=== PATIENT | female | born 1990 | race Caucasian/White ===

== ENCOUNTER 2021-07-18 05:02 | Inpatient (IN) | payer OTHER, SELFPAY ==
[2021-07-18] VITALS (52 sets, daily range): BP systolic 107–135; BP diastolic 60–93; PULSE 58–99; RESP 18; TEMP 36.2–36.6; O2SAT 97–100; BMI 33.0
[2021-07-18 05:41] LABS: Basophils Percent Auto 0.4 % (0.2-1.2); Eosinophils Absolute Auto 0.1 K/mm3 (0-0.3); Eosinophils Percent Auto 1.5 % (0-4.4); Hemoglobin 11.5 g/dL (12.0-15.0); Immature Granulocyte Absolute 0.03 K/mm3 (0.00-0.031); Immature Granulocyte Percent A 0.4 % (0-0.5); Lymphocytes Absolute Auto 1.77 K/mm3 (0.9-3.2); Lymphocytes Percent Auto 23.9 % (18.3-44.2); Mean Corpuscular HGB Conc 31.9 g/dl (32-36); Mean Corpuscular Hemoglobin 29.9 pg (26-34); Mean Corpuscular Volume 93.5 fl (80-100); Mean Platelet Volume 10.9 fl (7.4-10.4); Monocytes Absolute Auto 0.5 K/mm3 (0.1-0.6); Monocytes Percent Auto 6.6 % (2.6-8.5); Neutrophils Percent Auto 67.2 % (45.5-73.1); Platelet Count Result 158 k/mm3 (150-375); Red Blood Count 3.85 M/mm3 (4.2-5.4); Red Cell Distribution Width 13.6 % (11.5-14.5); White Blood Count 7.4 K/mm3 (4.5-10.0)
[2021-07-18] MEDS: OXYTOCIN 30 UNITS/NS 500 ML 30 UNITS/500 ML BAG IV CONT (05:53)
[2021-07-18] MEDS: LACTATED RINGERS 1,000 ML 125 ML IV CONT ×2 (05:53→08:57)
--- NOTE | 2021-07-18 07:23 | PM.IMHP ---
H&P: HPI History of Present Illness Date/Time: 07/18/21 07:23 Chief Complaint: This is 30-year-old 3 para 2 at 39 weeks gestation confirmed by early ultrasound for induction of labor. Her cervix is favorable under has been uncomplicated. She is negative for group B strep PMFSH Family History Family History Father Sarcoidosis Lung transplant recipient Grandparent Diabetes mellitus Heart disease Mother Hypertension Sibling Down's syndrome Social History Social History Smoking status: Never smoker Second hand tobacco smoke exposure: No Substance use: never Spiritual care concerns: No Meds Home Medications and Allergies Home Medications Medication Instructions Recorded Confirmed Type vit no.95-ferrous 1 tablet PO DAILY 02/07/19 07/04/21 History fumarate 28 mg-folic acid 800 mcg tablet () Allergies Allergy/AdvReac Type Severity Reaction Status Date / Time No Known Allergies Allergy Verified 02/07/19 13:35 Vital Signs Vital Signs - 24 hr 07/18/21 05:23 07/18/21 05:30 07/18/21 06:00 Temperature 97.1 F L Pulse Rate 74 76 Blood Pressure 121/81 121/86 Oxygen Delivery 07/18/21 06:30 07/18/21 07:00 07/18/21 05:39 Temperature 97.4 F L Pulse Rate 93 74 Blood Pressure 122/93 H 120/83 Oxygen Delivery Room Air Exam : Manual OB Exam: dilated ( cervix 3/75/1. AROM clear. FHTs reassuring) 3 cm H&P: Results Labs Labs: Short CBC 07/18/21 Range/Units 05:35 WBC 7.4 (4.5-10.0) K/mm3 Hgb 11.5 L (12.0-15.0) g/dL Hct 36.0 L (37.0-47.0) % Plt Count 158 (150-375) k/mm3 Assessment and Plan Assessment and plan (1) Term : Code(s): Z34.90 - Encounter for supervision of normal , unspecified, unspecified trimester Status: Acute Plan term Additional Plan medical induction of labor. Spontaneous vaginal delivery is expected. She has an epidural candidate
--- NOTE | 2021-07-18 09:15 | WPDANESEPP ---
Anes - Eval Pre Procedure Procedure: Labor Epidural Date/Time: 07/18/21 09:15 Surgeon: Farhan Preop Diagnosis: Labor Pain Pre Op Diagnosis: IOL Patient Data Age: 30 Gender: F Height: 1.65 m Weight: 90 kg Last Vital Signs Temp 36.2 C L 07/18/21 09:00 Pulse 71 07/18/21 09:15 BP 114/71 07/18/21 09:15 Pulse Ox 99 07/18/21 09:11 O2 Del Method Room Air 07/18/21 05:39 Allergies Allergy/AdvReac Type Severity Reaction Status Date / Time No Known Allergies Allergy Verified 02/07/19 13:35 Home Medications Medication Instructions Recorded Confirmed Type vit no.95-ferrous 1 tablet PO DAILY 02/07/19 07/04/21 History fumarate 28 mg-folic acid 800 mcg tablet () Laboratory Tests 07/18/21 07/18/21 07/18/21 05:35 05:35 05:35 WBC 7.4 K/mm3 K/mm3 (4.5-10.0) RBC 3.85 M/mm3 L M/mm3 (4.2-5.4) Hgb 11.5 g/dL L g/dL (12.0-15.0) Hct 36.0 % L % (37.0-47.0) MCV 93.5 fl fl (80-100) MCH 29.9 pg pg (26-34) MCHC 31.9 g/dl L g/dl (32-36) RDW 13.6 % % (11.5-14.5) Plt Count 158 k/mm3 k/mm3 (150-375) MPV 10.9 fl H fl (7.4-10.4) Immature Gran % (Auto) 0.4 % % (0-0.5) Neut % (Auto) 67.2 % % (45.5-73.1) Lymph % (Auto) 23.9 % % (18.3-44.2) Bertie % (Auto) 6.6 % % (2.6-8.5) Eos % (Auto) 1.5 % % (0-4.4) Baso % (Auto) 0.4 % % (0.2-1.2) Lymph # (Auto) 1.77 K/mm3 K/mm3 (0.9-3.2) Bertie # (Auto) 0.5 K/mm3 K/mm3 (0.1-0.6) Eos # (Auto) 0.1 K/mm3 K/mm3 (0-0.3) Baso # (Auto) 0.0 K/mm3 K/mm3 (0.0-0.1) Abs Immat Gran (auto) 0.03 K/mm3 K/mm3 (0.00-0.031) Absolute Neuts (auto) 5.0 K/mm3 K/mm3 (1.3-6.7) Absolute Nucleated RBC 0.0 K/mm3 K/mm3 (0.0-0.012) Nucleated RBC % 0.0 % % (0.0-0.2) RPR Pending Blood Type O Positive Antibody Screen Negative Patient hx anesthesia problems: none Family hx anesthesia problems: none Results Review: All pre-operative results and documents have been reviewed as part of the pre-operative evaluation. [facility] Family History Family History Father Sarcoidosis Lung transplant recipient Grandparent Diabetes mellitus Heart disease Mother Hypertension Sibling Down's syndrome Social History Social History Smoking status: Never smoker Second hand tobacco smoke exposure: No Substance use: never Spiritual care concerns: No Exam Day of Procedure 07/18/21 09:15 Patient weight: normal Lungs: normal air movement Airway: Mallampati scale class II Neurological: alert and oriented
--- NOTE | 2021-07-18 10:27 | PM.OBPRVD ---
OB - Delivery Note Procedure Procedure: mil Complications: none Baby Date of : 07/18/21 Weeks of gestation at delivery: 39 Infant gender: Male presentation: vertex position: Right Occiput Anterior Placenta delivery description: Spontaneous Cord Vessel Description: 3 Vessels score one minute: 9 score five minutes: 9
[2021-07-18] MEDS: OXYTOCIN 30 UNITS/NS 500 ML 30 UNITS/500 ML BAG 125 UNITS IV CONT (10:49)
[2021-07-18 11:03] LABS: Rapid Plasma Reagin Non-Reactive (NonReactive)
--- NOTE | 2021-07-18 13:30 | OBPPTRN ---
1307-Patient transferred to post room #285 via wheelchair. Support person present. Oriented to unit, room, information board, rooming in, admission packet and security measures. Patient verbalizes understanding.
[2021-07-18] MEDS: IBUPROFEN 600 MG TABLET PO ×2 (13:56→19:37)
[2021-07-18] MEDS: DIBUCAINE 1% OINTMENT 30 GM TUBE 1 APPLIC TOPICAL (19:42)
[2021-07-18] MEDS: ACETAMINOPHEN 325 MG TABLET 650 MG PO (23:08)
[2021-07-19] MEDS: IBUPROFEN 600 MG TABLET PO ×2 (04:23→13:48)
[2021-07-19 04:40] VITALS: BP 107/76; PULSE 63; RESP 18; TEMP 36.3
[2021-07-19 05:02] LABS: Hematocrit 33.9 % (37.0-47.0); Hemoglobin 11.1 g/dL (12.0-15.0)
[2021-07-19 07:50] VITALS: BP 96/66; PULSE 64; RESP 18; TEMP 36.3; O2SAT 98
[2021-07-19] MEDS: ACETAMINOPHEN 325 MG TABLET 650 MG PO (08:15)
[2021-07-19] MEDS: MULTIVIT/MIN/PREN/FOL AC/IRON TABLET 1 TAB PO (08:15)
--- NOTE | 2021-07-19 08:53 | PM.OBPNVD ---
OB - PN: Subj Subjective Date/time seen: 07/19/21 08:53 OB - PN: Obj Data Labs CBC & Chem 7: 07/19/21 04:23 Labs: Laboratory Results - last 24 hr 07/18/21 07/19/21 05:35 04:23 Hgb 11.1 L Hct 33.9 L RPR Non-reactive Imaging My impression: term OB - PN A/P Plan day: 2 Plan: routine care, discharge home and follow up 6 weeks Time Spent With Patient Time: Total time spent is greater than 50% in coordination of care (as documented) at patient's floor/unit and/or counseling patient: Time with patient: less than 15 minutes
--- NOTE | 2021-07-19 09:01 | WPDANLDPN2 ---
Anes-Prog Note L&D Date/Time: 07/19/21 09:01 Comfortable throughout: labor and delivery Neuraxial method: epidural Epidural/Spinal procedure site: clean & non-tender Neuro status: Neuro function grossly intact. Cardiovascular status: normal Respiratory status: normal Airway patency: baseline Mental status: baseline Post-Op hydration status: normal Vital Signs: Last Vital Signs Temp 36.3 C L 07/19/21 07:50 Pulse 64 07/19/21 07:50 Resp 18 07/19/21 07:50 BP 96/66 L 07/19/21 07:50 Pulse Ox 98 07/19/21 07:50 O2 Del Method Room Air 07/19/21 04:40 Pain score (VAS): 10 I/O: Intake & Output 07/18/21 07/19/21 07/19/21 23:59 07:59 15:59 Intake Total 480 Balance 480 Post-procedural complaints: none Patient feedback: Patient satisfied with anesthetic care.
--- NOTE | 2021-07-19 13:27 | PC.NURSE ---
Patient viewed the discharge video Mother & Baby Care, The First Two Weeks . Patient was given the opportunity and encouraged to ask questions. Patient verbalized understanding of information shared and has been given the mother/baby guide for home reference.
--- NOTE | 2021-07-19 14:42 | PC.NURSE ---
[id number] Mother ()verbalizes she is able to independently latch with appropriate positioning/alignment. She denies any nipple discomfort and is responsively . Infant is currently meeting outcomes for weight, output, jaundice and feeding frequencies of 8-12 times in 24 hours. Mother declines any additional assistance/education at this time. Mother is encouraged to call for assistance if her infant doesn?t latch or there is discomfort with latching. Mother voiced understanding of information shared, calling for an assessment of a latch, and mom and baby guide reviewed for additional resource information . Reported to the primary RN.
[2021-07-22 09:41] VITALS: BP 114/73; PULSE 76; RESP 20; TEMP 36.7; O2SAT 100
--- NOTE | 2021-07-23 13:17 | PM.DS ---
DS: Admitting Diagnosis Discharge Date 07/19/21 Admitting Diagnosis Term DS: Summary Hospital Course Reason for hospitalization: Patient underwent spontaneous vaginal delivery which was unremarkable. Her hospital course was unremarkable. She remained afebrile. She was up, voiding without difficulty, ambulating generally without complaints. Hospital Course: See above Time Spent with Patient Time attestation: Total time spent providing and/or coordinating discharge services: Discharge Plan Discharge Attending physician on discharge: Danilo Gay Consulting providers: Mckenzie Knight Discharging Clinician: Danilo Gay Patient Disposition: Home, Self-Care Activity: may shower and pelvic rest Diet: heart healthy Wound Care Instructions: follow printed instructions Discharge Instructions: Education: Mom and Baby Guide Given to: Mother Follow-Up: Call your delivering provider's office for an appointment to be seen in: 6 Weeks [facility] the follow-up appointment. Appointment Date/Time: July 22, 2021 at 9:00 am What to expect at your follow-up visit: Physical Assessment Call [phone] if you are unable to keep your appointment time. BREAST CARE: * Wear a snug supportive bra. * For engorgement discomfort: Breast Feeding: * Apply warm moist washcloths * Express milk as needed to relieve engorgement * Wear loose clothing * For sore nipples: * Identify correct latch-on * Apply warm moist washcloths before and after nursing * Air dry nipples after nursing * May apply Lansinoh cream to nipples EPISIOTOMY/PERINEAL CARE: * Until bleeding stops, use your claudia bottle after urinating * Change your pad frequently throughout the day * No tub baths until seen by your physician - You may shower ACTIVITY: * Rest as much as possible. * Do not exercise or lift anything heavier than your baby (such as laundry or other children.) * Avoid stairs or driving as much as possible. * Do not put anything into the vagina. No douching, tampons, or sexual activity until seen by physician. NOTIFY PHYSICIAN IF YOU HAVE ANY QUESTIONS OR IF ANY OF THE FOLLOWING SYMPTOMS OCCUR: * If your perineum becomes red, swollen, or more painful than what you have experienced in the hospital. * If your vaginal bleeding becomes foul smelling. * If your vaginal bleeding becomes more heavy than a period or if your bleeding changes from pink to bright red. However, you may pass an occasional walnut-sized clot once or twice for the first week . * If you experience a sharp, shooting pain in you calves. * If you discover a hard, reddened area on your breast or if you experience flu-like symptoms. DIET: * Eat regular, well-balanced meals. * Drink plenty of fluids daily. If , drink to thirst. Stand Alone Forms: General Discharge Information Follow-up/Referrals: Danilo Gay MD [Physician] - Discharge Medications: Continued PNV cmb#95-ferrous fumarate-FA [] 28 mg iron- 800 mcg Tablet 1 tablet PO DAILY Date of admission: 07/18/21 05:02 Primary Care Provider: PHYSICIAN,TRANSPORTATION PLANNER Admitting Provider: Danilo Gay Attending physician on admission: Danilo Gay Condition: Stable
== END 2021-07-19 14:35 | disposition home or self-care (01) | DRG 807 ==
LOC: ANHLDR 05:06 → ANHOB2 13:20
PROVIDERS: Admitting Provider Obstetrics & Gynecology; Visit Provider Obstetrics & Gynecology
DX: O62.3 Precipitate labor (principal); Z37.0 Single live birth; Z3A.39 39 weeks gestation of pregnancy
CPT/HCPCS: 36415; 85014; 85018; 85025; 86592; 86850; 86900; 86901; A9270; J2590; J2795; J7120

== ENCOUNTER 2024-12-21 10:36 | Outpatient (CLI) | payer OTHER, SELFPAY ==
[2024-12-21 11:06] VITALS: BP 126/79; PULSE 80
[2024-12-21 11:08] VITALS: BP 126/79; PULSE 80; BMI 34.2
[2024-12-21 11:13] LABS: Hematocrit 35.4 % (37.0-47.0); Hemoglobin 11.6 g/dL (12.0-15.0); Immature Granulocyte Percent A 0.4 % (0-0.5); Lymphocytes Absolute Auto 1.43 K/mm3 (0.9-3.2); Mean Corpuscular HGB Conc 32.8 g/dl (32-36); Mean Corpuscular Hemoglobin 29.9 pg (26-34); Mean Corpuscular Volume 91.2 fl (80-100); Nucleated Red Blood Cells Absolute Auto 0.000 K/mm3 (0.0-0.012); Nucleated Red Blood Cells Perc 0.0 % (0.0-0.2); Platelet Count Result 173 k/mm3 (150-375); Red Blood Count 3.88 M/mm3 (4.2-5.4); White Blood Count 6.7 K/mm3 (4.5-10.0)
[2024-12-21 11:16] VITALS: BP 116/80; PULSE 71
[2024-12-21 11:31] VITALS: BP 114/79; PULSE 65
[2024-12-21 11:33] LABS: Alanine Aminotransferase 16 U/L (6-35); Albumin Level 3.8 g/dL (3.5-5.1); Alkaline Phosphatase 87 U/L (38-126); Anion Gap 6 mmol/L (4-12); Aspartate Amino Transferase 23 U/L (14-36); Bilirubin,Total 0.6 mg/dL (0.2-1.3); Blood Urea Nitrogen 11 mg/dL (7-17); Calcium 9.0 mg/dL (8.4-10.2); Carbon Dioxide 20 mmol/L (22-30); Chloride 105 mmol/L (98-107); Estimated CRCL calculation 125 ml/min; Estimated Glomerular Filt Rate > 60; Glucose 101 mg/dL (65-110); Potassium 3.8 mmol/L (3.4-5.0); Sodium 131 mmol/L (137-145); Total Protein 7.1 g/dL (6.3-8.2); Uric Acid 5.2 mg/dL (2.5-7.5)
[2024-12-21 11:41] VITALS: BP 114/79; PULSE 65
--- NOTE | 2024-12-21 11:50 | PC.NURSE ---
Dr. Janessa Lopez informed of BP's, reactive NST, CBC and CMP results. Urine was just sent. OK to discharge pt to home.
--- NOTE | 2024-12-21 11:54 | PM.OBTRLD ---
OB - Triage/Final Diagnosis Visit Information Date of evaluation: 12/21/24 Reason for evaluation: decreased movement Comments/Additional reasons for admission: I have assessed the risk for this patient, Nadiya Morales, and determined that she would benefit from observation care. Evaluation Laboratory results: Laboratory Tests 12/21/24 11:04 WBC 6.7 RBC 3.88 L Hgb 11.6 L Hct 35.4 L MCV 91.2 MCH 29.9 MCHC 32.8 RDW 13.8 Plt Count 173 MPV 10.7 H Immature Gran % (Auto) 0.4 Neut % (Auto) 70.1 Lymph % (Auto) 21.3 Davison % (Auto) 6.0 Eos % (Auto) 1.8 Baso % (Auto) 0.4 Lymph # (Auto) 1.43 Davison # (Auto) 0.4 Eos # (Auto) 0.1 Baso # (Auto) 0.0 Abs Immat Gran (auto) 0.03 Absolute Neuts (auto) 4.7 Absolute Nucleated RBC 0.000 Nucleated RBC % 0.0 Sodium 131 L Potassium 3.8 Chloride 105 Carbon Dioxide 20 L Anion Gap 6 BUN 11 Creatinine 0.63 L Estim Creat Clear Calc 125 Estimated GFR > 60 Glucose 101 Uric Acid 5.2 Calcium 9.0 Total Bilirubin 0.6 AST 23 ALT 16 Alkaline Phosphatase 87 Total Protein 7.1 Albumin 3.8 Vital signs: Vital Signs - 24 hr 12/21/24 11:06 12/21/24 11:08 12/21/24 11:16 Pulse Rate 80 80 71 Blood Pressure 126/79 116/80 Blood Pressure [Right Arm] 126/79 12/21/24 11:31 Pulse Rate 65 Blood Pressure 114/79 Blood Pressure [Right Arm]
[2024-12-21 11:58] LABS: Add Urine Microscopic? NO; Appearance Urine Clear (Clear); Glucose Urine UA Negative (Negative); Leukocyte Esterase Ur Negative LEU/UL (Negative); Nitrate Urine Negative (Negative); Specific Grav Ur 1.014 (1.001-1.035)
--- OUTSIDE RECORDS SUMMARY | 2024-12-21 12:10 | XMS_ITS | Clinical Summary ---
Author Organization [facility] Address [address] [place] [address] Care Team Providers Care Janitor Supervisor Name Role Phone Unavailable Primary Care Provider Unavailabl e Source Comments [facility],non-owned Affiliates and Associated Physician Practices is amultiple site organization consisting of ambulatory clinics and hospital sitesin [place], [place], [place] and [place]. This disclosure is being madepursuant to the Care Everywhere program and may not contain all information available regarding this patient. Last updated 17.[facility] [employer] Social History Tobacco Use Types Packs/Day Years Used Date Smoking Tobacco: Never Assessed Comments Unknown Sex and Gender Information Value Date Recorded Sex Assigned at Not on file Legal Sex Female 5:59 PM CHECKING DEPARTMENT SUPERVISOR Gender Identity Not on file Sexual Orientation Not on file Last Filed Vital Signs Vital Sign Reading Time Taken Comments Blood Pressure 104/82 03/29/2014 1:36 PM CHECKING DEPARTMENT SUPERVISOR Pulse 62 03/29/2014 1:36 PM CHECKING DEPARTMENT SUPERVISOR Temperature 36.5 C (97.7 F) 03/29/2014 1:36 PM CHECKING DEPARTMENT SUPERVISOR Respiratory Rate 16 03/29/2014 1:36 PM CHECKING DEPARTMENT SUPERVISOR Oxygen Saturation - - Inhaled Oxygen Concentration - - Weight 74.4 kg (164 lb) 03/29/2014 1:36 PM CHECKING DEPARTMENT SUPERVISOR Height 165.1 cm (5' 5) 03/29/2014 1:36 PM CHECKING DEPARTMENT SUPERVISOR Body Mass Index 27.29 03/29/2014 1:36 PM CHECKING DEPARTMENT SUPERVISOR Plan of Treatment Health Maintenance Due Date Last Done Comments HIV SCREENING 12/30/2007 HEPATITIS C SCREENING 12/25/2010 DTAP/TDAP/TD VACCINES (1 - Tdap) 12/30/2011 HEPATITIS B VACCINE (1 of 3 - 19+ 3-dose series) 12/30/2011 HPV VACCINE (1 - 3-dose SCDM series) 12/30/2019 DEPRESSION SCREENING 02/24/2024 COVID-19 VACCINE (1 - 2023-2 5 season) 2024 INFLUENZA VACCINE (#1) 2024 ZOSTER VACCINE (1 of 2) 2042 HIB VACCINE Aged Out No longer eligi ble based on patient's age to complete this topic MENINGOCOCCAL (Group B) VACC INE SHARED DECISION-MAKING Aged Out No longer eligibl e based on patient's age to complete this topic MENINGOCOCCAL GROUPS A/C/Y/W VACCINE Aged Out No longer eligible b ased on patient's age to complete this topic PNEUMOCOCCAL VACCINE Aged Out No long er eligible based on patient's age to complete this topic Insurance [facility]
[2024-12-21 12:19] LABS: Total Protein Urine Random < 5 mg/dL; Ur Ttl Prot Creatinine Ratio < 0.05 mg/mg (0-0.20)
== END 2024-12-21 11:56 | disposition home or self-care (01) ==
LOC: ANHOBOP 10:43 → ANHOBPP 10:46
PROVIDERS: Visit Provider Obstetrics & Gynecology
DX: O13.9 Gestational [pregnancy-induced] hypertension without significant proteinuria, unspecified trimester (principal); Z3A.00 Weeks of gestation of pregnancy not specified
CPT/HCPCS: 36415; 59025; 80053; 81003; 82570; 84156; 84550; 85025; 99199

== ENCOUNTER 2024-12-26 04:55 | Inpatient (IN) | payer OTHER, SELFPAY ==
[2024-12-26] VITALS (68 sets, daily range): BP systolic 89–203; BP diastolic 49–142; PULSE 52–191; RESP 14–20; TEMP 36.4–36.8; O2SAT 95–100; BMI 34.1
--- OUTSIDE RECORDS SUMMARY | 2024-12-26 05:03 | XMS_ITS | Clinical Summary ---
Author Organization [facility] Address [address] [place] [address] Care Team Providers Care Avionics Supervisor Name Role Phone Unavailable Primary Care Provider Unavailabl e Source Comments [facility],non-owned Affiliates and Associated Physician Practices is amultiple site organization consisting of ambulatory clinics and hospital sitesin [place], [place], [place] and [place]. This disclosure is being madepursuant to the Care Everywhere program and may not contain all information available regarding this patient. Last updated 17.[facility] [employer] Social History Tobacco Use Types Packs/Day Years Used Date Smoking Tobacco: Never Assessed Comments Unknown Sex and Gender Information Value Date Recorded Sex Assigned at Not on file Legal Sex Female 5:59 PM EMBROIDERY DESIGNER Gender Identity Not on file Sexual Orientation Not on file Last Filed Vital Signs Vital Sign Reading Time Taken Comments Blood Pressure 104/82 03/29/2014 1:36 PM EMBROIDERY DESIGNER Pulse 62 03/29/2014 1:36 PM EMBROIDERY DESIGNER Temperature 36.5 C (97.7 F) 03/29/2014 1:36 PM EMBROIDERY DESIGNER Respiratory Rate 16 03/29/2014 1:36 PM EMBROIDERY DESIGNER Oxygen Saturation - - Inhaled Oxygen Concentration - - Weight 74.4 kg (164 lb) 03/29/2014 1:36 PM EMBROIDERY DESIGNER Height 165.1 cm (5' 5) 03/29/2014 1:36 PM EMBROIDERY DESIGNER Body Mass Index 27.29 03/29/2014 1:36 PM EMBROIDERY DESIGNER Plan of Treatment Health Maintenance Due Date [...] patient's age to complete this topic Insurance [facility]
[2024-12-26 05:28] LABS: Hematocrit 35.2 % (37.0-47.0); Hemoglobin 11.5 g/dL (12.0-15.0); Immature Granulocyte Percent A 0.4 % (0-0.5); Lymphocytes Absolute Auto 1.92 K/mm3 (0.9-3.2); Mean Corpuscular HGB Conc 32.7 g/dl (32-36); Mean Corpuscular Hemoglobin 30.1 pg (26-34); Mean Corpuscular Volume 92.1 fl (80-100); Nucleated Red Blood Cells Absolute Auto 0.000 K/mm3 (0.0-0.012); Nucleated Red Blood Cells Perc 0.0 % (0.0-0.2); Platelet Count Result 154 k/mm3 (150-375); Red Blood Count 3.82 M/mm3 (4.2-5.4); White Blood Count 7.6 K/mm3 (4.5-10.0)
[2024-12-26] MEDS: OXYTOCIN 30 UNITS/NS 500 ML 30 UNITS/500 ML BAG IV CONT ×2 (05:45→09:38)
[2024-12-26] MEDS: LACTATED RINGERS 1,000 ML 125 ML IV CONT ×2 (05:45→07:36)
--- NOTE | 2024-12-26 05:45 | LDADM ---
This patient, Nadiya Morales, was admitted to Labor/Delivery/Recovery 104 on 12/26/24 at 04:55. Plans for labor, pain management and were discussed with patient. Patient/family oriented to hospital policies and general routines including ID bracelet, bed and alarms, visiting hours, pain management, procedures, bathroom and other care routines, personal items, smoking policy, room service/diet and guest tray routines, infant security routines, and visiting hours. Patient/Family are encouraged to report perceived risks to care and to ask questions if they do not understand what they are told or what they should do. See OBIX for further documentation.
--- NOTE | 2024-12-26 06:28 | PM.IMHP ---
H&P: HPI History of Present Illness Date/Time: 12/26/24 06:28 Chief Complaint: Medical induction of labor at term Narrative: This is a 33-year-old 4 para 3 whose last menstrual period was 03/31/2024, EDC 12/31/2024, presents at 39weeks gestation for induction of labor. She is negative for group B strep. She failed her 1hour but passed her 3hour GTT her NIPT was low risk. Risks and benefits reviewed Review of Systems Review of Systems: All systems reviewed & are unremarkable except as noted in HPI and below PMFSH Family History Family History Father Sarcoidosis Lung transplant recipient Grandparent Diabetes mellitus Heart disease Mother Hypertension Sibling Down's syndrome Social History Social History Smoking status: Never smoker Second hand tobacco smoke exposure: No Substance use: never Lack of Transportation: No Lack of Food: Never True Current Housing: I Have Housing Concerned About Future Housing: No Difficulty Paying Gas/Electric Bills: No Difficulty Paying for Meds: No Currently Unemployed: No Education: Bachelor's Degree Difficulty w/ Childcare or Family Care: No Spiritual care concerns: No Meds Home Medications and Allergies Home Medications ?Medication ?Instructions ?Recorded ?Confirmed ?Type vit no.95-ferrous 1 tablet PO DAILY 02/07/19 12/21/24 History fumarate 28 mg-folic acid 800 mcg tablet () Allergies Allergy/AdvReac Type Severity Reaction Status Date / Time No Known Allergies Allergy Verified 12/26/24 05:53 Vital Signs Vital Signs - 24 hr 12/26/24 05:13 12/26/24 05:31 12/26/24 05:45 Temperature 98.3 F Pulse Rate 81 75 Blood Pressure 135/95 H 129/85 12/26/24 05:46 12/26/24 06:01 12/26/24 06:16 Temperature Pulse Rate 75 74 72 Blood Pressure 125/89 124/85 130/85 Exam Const: General: cooperative, healthy appearing and comfortable Nutritional Appearance: average body habitus Orientation/consciousness: oriented to person, oriented to place and oriented to time HENMT: Head: normal to inspection Resp: Effort & Inspection: normal respiratory effort Cardio: Rate: regular rate Rhythm: regular rhythm Heart sounds: S1 normal heart sound present and S2 normal heart sound present GI: Inspection: normal to inspection (Gravid soft uterus) : Speculum Exam - Vagina: normal appearance of the vagina Speculum Exam - Cervix: normal appearance of the cervix (Cervix 4.5/75/2. AROM clear. FHT is reassuring) H&P: Results Labs Labs: Short CBC 12/26/24 Range/Units 05:14 WBC 7.6 (4.5-10.0) K/mm3 Hgb 11.5 L (12.0-15.0) g/dL Hct 35.2 L (37.0-47.0) % Plt Count 154 (150-375) k/mm3 Assessment and Plan Assessment and plan (1) Term : Code(s): Z34.90 - Encounter for supervision of normal , unspecified, unspecified trimester Status: Acute Plan Medical induction of labor. Spontaneous vaginal delivery is expected. She is an epidural candidate
[2024-12-26 07:07] LABS: Syphilis IgG/IgM Antibody Non-Reactive (Nonreactive)
--- NOTE | 2024-12-26 07:35 | P.PNAN_ITS ---
Anes - Initial Pre Proc Eval Date/Time: 12/26/24 07:35 Surgeon: Danilo Lopez MD Pre Op Diagnosis: IOL Patient Data Age: 33 Gender: F Height: 1.65 m Weight: 93 kg Last Vital Signs Temp 36.4 C L 12/26/24 06:30 Pulse 73 12/26/24 07:35 BP 135/82 12/26/24 07:35 Pulse Ox 98 12/26/24 07:34 Allergies Allergy/AdvReac Type Severity Reaction Status Date / Time No Known Allergies Allergy Verified 12/26/24 05:53 Home Medications ?Medication ?Instructions ?Recorded ?Confirmed ?Type vit no.95-ferrous 1 tablet PO DAILY 02/07/19 12/21/24 History fumarate 28 mg-folic acid 800 mcg tablet () Laboratory Tests 12/26/24 05:14 WBC 7.6 K/mm3 (4.5-10.0) RBC 3.82 L M/mm3 (4.2-5.4) Hgb 11.5 L g/dL (12.0-15.0) Hct 35.2 L % (37.0-47.0) MCV 92.1 fl (80-100) MCH 30.1 pg (26-34) MCHC 32.7 g/dl (32-36) RDW 13.7 % (11.5-14.5) Plt Count 154 k/mm3 (150-375) MPV 11.0 H fl (7.4-10.4) Immature Gran % (Auto) 0.4 % (0-0.5) Neut % (Auto) 64.9 % (45.5-73.1) Lymph % (Auto) 25.4 % (18.3-44.2) Rapides % (Auto) 5.9 % (2.6-8.5) Eos % (Auto) 2.9 % (0-4.4) Baso % (Auto) 0.5 % (0.2-1.2) Lymph # (Auto) 1.92 K/mm3 (0.9-3.2) Rapides # (Auto) 0.5 K/mm3 (0.1-0.6) Eos # (Auto) 0.2 K/mm3 (0-0.3) Baso # (Auto) 0.0 K/mm3 (0.0-0.1) Abs Immat Gran (auto) 0.03 K/mm3 (0.00-0.031) Absolute Neuts (auto) 4.9 K/mm3 (1.3-6.7) Absolute Nucleated RBC 0.000 K/mm3 (0.0-0.012) Nucleated RBC % 0.0 % (0.0-0.2) Syphilis IgG/IgM Ab Non-reactive (Nonreactive) Blood Type O Positive Antibody Screen Negative Patient hx anesthesia problems: none Family hx anesthesia problems: none Results Review: All pre-operative results and documents have been reviewed as part of the pre- operative evaluation. [facility] Family History Family History Father Sarcoidosis Lung transplant recipient Grandparent Diabetes mellitus Heart disease Mother Hypertension Sibling Down's syndrome Social History Social History Smoking status: Never smoker Second hand tobacco smoke exposure: No Substance use: never Lack of Transportation: No Lack of Food: Never True Current Housing: I Have Housing Concerned About Future Housing: No Difficulty Paying Gas/Electric Bills: No Difficulty Paying for Meds: No Currently Unemployed: No Education: Bachelor's Degree Difficulty w/ Childcare or Family Care: No Spiritual care concerns: No Anes - Eval Final PreProcedure Day of Procedure 12/26/24 07:35 Patient weight: obese Heart: regular rate and rhythm Lungs: clear to auscultation Neurological: alert and oriented ASA classification: II Emergent: no Anesthetic plan: proceed Anesthesia type and monitoring: regional epidural and standard monitoring Results Review: All pre-operative results and documents have been reviewed as part of the pre- operative evaluation. Informed Consent: The patient's anesthetic plan and its attendant risks and benefits were discussed with the patient/family/POA. Questions were solicited and answers provided to the satisfaction of the patient/family/POA.
--- NOTE | 2024-12-26 09:02 | PM.OBPRVD ---
OB - Vaginal Delivery Note Procedure Delivery date: 12/26/24 Events: Elective Induction of Labor Induction method: AROM Delivery monitor: External FHT Episiotomy description: None Laceration Description: None Quantitative Blood Loss (ml): 62 Anesthesia type: Epidural Disposition: Floor Complications: No immediate complications Narrative: Patient was admitted for induction of labor 39 half weeks gestation. Artificial rupture membranes performed. She epidural anesthesia was placed. She progressed to an unremarkable 1st stage of labor. When she was complete she pushed and delivered the head spontaneously in the ALVARO position. Anterior posterior shoulder delivered spontaneously. Cord clamped x2 and cut and passed off the table given Apgars of 8 [id number]. Cord blood was drawn. Placenta delivered intact spontaneously. Twenty of Pitocin placed in the IV to help firm the uterus. Inspection of the vagina showed no tears or lacerations. QBL was 62cc. All sponge, needle, instrument counts were correct. There were no immediate complications [place] Baby Date of : 12/26/24 Time of : 08:53 Gestational Age by Date: 39 Infant gender: Female presentation: vertex position: Right Occiput Anterior Placenta delivery description: Spontaneous Cord Vessel Description: 3 Vessels score one minute: 8 score five minutes: 9
--- NOTE | 2024-12-26 09:04 | P.DS_ITS ---
DS: Admitting Diagnosis Discharge Date 12/27/2024 Admitting Diagnosis Term DS: Discharge Diagnosis Discharge Diagnosis (1) Term : Code(s): Z34.90 - Encounter for supervision of normal , unspecified, unspecified trimester Status: Acute DS: Summary Hospital Course Reason for hospitalization: Induction of labor at term Hospital Course: Patient was admitted at term for induction of labor. She underwent spot successful spontaneous vaginal delivery on the a.m. of 12/26/2024. Her hospital course unremarkable. Afebrile she was up, D, eating regular diet, ambulating, generally without complaints. Time Spent with Patient Time attestation: Total time spent providing and/or coordinating discharge services: Exam Const: General: cooperative, healthy appearing and comfortable Nutritional Appearance: average body habitus Orientation/consciousness: oriented to person, oriented to place and oriented to time HENMT: Head: normal to inspection Resp: Effort & Inspection: normal respiratory effort Cardio: Rate: regular rate Rhythm: regular rhythm Heart sounds: S1 normal heart sound present and S2 normal heart sound present GI: Inspection: normal to inspection (Gravid soft uterus) : Speculum Exam - Vagina: normal appearance of the vagina Speculum Exam - Cervix: normal appearance of the cervix (Cervix 4.5/75/2. AROM clear. FHT is reassuring) DS: Data Data Completed and Pending Labs on day of discharge: Labs from last 24 hours 12/26/24 05:14 WBC 7.6 RBC 3.82 L Hgb 11.5 L Hct 35.2 L MCV 92.1 MCH 30.1 MCHC 32.7 RDW 13.7 Plt Count 154 MPV 11.0 H Immature Gran % (Auto) 0.4 Neut % (Auto) 64.9 Lymph % (Auto) 25.4 [place] % (Auto) 5.9 Eos % (Auto) 2.9 Baso % (Auto) 0.5 Lymph # (Auto) 1.92 [place] # (Auto) 0.5 Eos # (Auto) 0.2 Baso # (Auto) 0.0 Abs Immat Gran (auto) 0.03 Absolute Neuts (auto) 4.9 Absolute Nucleated RBC 0.000 Nucleated RBC % 0.0 Syphilis IgG/IgM Ab Non-reactive Blood Type O Positive Antibody Screen Negative Discharge Plan Discharge Attending physician on discharge: Danilo Gay Discharging Clinician: Danilo Gay Patient Disposition: Home Activity: may shower, no straining and pelvic rest Diet: heart healthy Wound Care Instructions: follow printed instructions Patient Instructions: Antibiotic Form Patient Language: [place] Stand Alone Forms: General Discharge Information Follow-up/Referrals: Danilo Gay MD [Physician, RETREAD OPERATOR] Discharge Medications: Continued PNV [id number] [] 28 mg iron- 800 mcg Tablet 1 tablet PO DAILY Date of admission: 12/26/24 04:55 Primary Care Provider: PHYSICIAN,UX RESEARCH ASSOCIATE Admitting Provider: Danilo Gay Attending physician on admission: Danilo Gay Condition: Stable
--- NOTE | 2024-12-26 11:41 | PC.NURSE ---
Patient transferred to post room #286 via wheel chair. Support person present. Oriented to unit, room, information board, rooming in, admission packet and security measures. Patient verbalizes understanding.
[2024-12-26] MEDS: IBUPROFEN 600 MG TABLET PO ×2 (12:19→19:26)
[2024-12-26] MEDS: LANOLIN (LANSINOH) 7.5 GM CREAM 1 APPLIC TOPICAL (12:20)
[2024-12-26] MEDS: ACETAMINOPHEN 325 MG TABLET 650 MG PO (17:15)
[2024-12-26] MEDS: DOCUSATE SODIUM 100 MG CAPSULE PO (17:15)
[2024-12-27 00:19] VITALS: BP 107/63; PULSE 113; RESP 18; TEMP 36.4; O2SAT 97
[2024-12-27] MEDS: IBUPROFEN 600 MG TABLET PO (04:00)
[2024-12-27 04:56] LABS: Hematocrit 32.9 % (37.0-47.0); Hemoglobin 10.4 g/dL (12.0-15.0)
--- NOTE | 2024-12-27 06:44 | PM.OBPNVD ---
OB - PN: Subj Subjective Date/time seen: 12/27/24 06:44 Patient comments: no complaints, pain well controlled and tolerating diet [place] baby status: doing well OB - PN: Obj Data Labs 12/27/24 03:58 Labs: Laboratory Results - last 24 hr 12/26/24 12/27/24 05:14 03:58 Hgb 10.4 L Hct 32.9 L Syphilis IgG/IgM Ab Non-reactive OB - PN A/P Assessment and Plan (1) Term : Code(s): Z34.90 - Encounter for supervision of normal , unspecified, unspecified trimester Status: Acute Plan routine Time Spent With Patient Time: Total time spent is greater than 50% in coordination of care (as documented) at patient's floor/unit and/or counseling patient: Exam Const: General: cooperative, healthy appearing and comfortable Nutritional Appearance: average body habitus Orientation/consciousness: oriented to person, oriented to place and oriented to time HENMT: Head: normal to inspection Resp: Effort & Inspection: normal respiratory effort Cardio: Rate: regular rate Rhythm: regular rhythm Heart sounds: S1 normal heart sound present and S2 normal heart sound present GI: Inspection: normal to inspection (Gravid soft uterus) : Speculum Exam - Vagina: normal appearance of the vagina Speculum Exam - Cervix: normal appearance of the cervix (Cervix 4.5/75/2. AROM clear. FHT is reassuring)
[2024-12-27] MEDS: MULTIVIT/MIN/PREN/FOL AC/IRON TABLET 1 TAB PO (07:48)
[2024-12-27] MEDS: LANOLIN (LANSINOH) 7.5 GM CREAM 1 APPLIC TOPICAL (07:48)
[2024-12-27] MEDS: DIBUCAINE 1% OINTMENT 30 GM TUBE 1 APPLIC TOPICAL (07:48)
--- NOTE | 2024-12-27 08:10 | PC.NURSE ---
Consulted with patient to assess needs related to . Discussed with mother her successes, concerns and any questions she has. Had some concerns that some of her latches felt shallow. We reviewed working with the , supporting breast, protecting her nipples with an optimal deep latch, good positioning, and good hand washing. Encouraged understanding the benefits of skin to skin, responding to feeding cues, frequencies of feeding 8-12 times in 24 hours (approximately 2-3 hours), duration of feedings, milk production, intake/output feeding sheet and signs of adequate intake encouraging swallowing at the breast. Reviewed positioning and alignment, supporting breast, off-centered (asymmetrical latch) and leading with the chin with big, open, wide gape. latched optimally to the [left] breast in [cross cradle] position. Education given to the mother of how to visualize the suckling (with good rocking jaw motion) swallows (dropping of the lower jaw) and how to listen for drinking at the breast (the ka sound). The was [able] to maintain latch without discomfort to mother. Nipple care reviewed with optimal latch, good positioning and using clean hands when touching her breast. Resources used to facilitate learning were used from the [visual handouts/ tool/mom and baby guide]. Mother voiced understanding of the education shared, to call for assistance if the does not latch or if there is discomfort with . Reported to the Primary RN.
[2024-12-27 08:25] VITALS: BP 113/78; PULSE 67; RESP 16; TEMP 36.8; O2SAT 99
--- NOTE | 2024-12-27 11:35 | PC.NURSE ---
Consulted with mother concerning needs and she shared her ability to independently latch infant optimally without pain. Mother is feeding appropriately for growth of and understands stimulating to eat if needed. Infant has had appropriate feedings in the last 24 hours meets the outcomes for weight, output, blood sugar and jaundice at this time. Reinforced understanding of milk production, transition of milk, signs of adequate intake, transition of stool, prevention/relief of engorgement, plugged ducts, mastitis, responsive watching for feeding cues, the different methods of stimulating to breastfeed 1-3 hours after the start of the last feeding, community resources, and when to call a provider using the resource of the feeding sheet along with the mom and baby guide. Mother voiced understanding of the information shared, is confident to continue effectively her infant at home, when to call for assistance, denies any additional assistance or education at this time. Reported to the Primary RN.
[2024-12-28 14:05] VITALS: BP 136/82; PULSE 79; RESP 18; TEMP 36.7; O2SAT 100
== END 2024-12-27 12:25 | disposition home or self-care (01) | DRG 807 ==
LOC: ANHLDR 09:06 → ANHOB2 11:46
PROVIDERS: Admitting Provider Obstetrics & Gynecology; Visit Provider Obstetrics & Gynecology
DX: O80 Encounter for full-term uncomplicated delivery (principal); Z37.0 Single live birth; Z3A.39 39 weeks gestation of pregnancy
CPT/HCPCS: 36415; 85014; 85018; 85025; 86593; 86850; 86900; 86901; A9270; J2590; J2795; J7120